=== PATIENT | male | born 1965 | race Caucasian/White ===

== ENCOUNTER 2019-02-09 18:59 | Emergency (ER) | payer OTHER, BC ==
[2019-02-09 19:44] VITALS: BP 146/91
[2019-02-09] MEDS ORDERED: IBUPROFEN 800 MG TABLET PO ONE (21:02)
--- NOTE | 2019-02-09 21:14 | ER Document Report ---
HPI - HPI Pain Level: 3 Notes: Patient is a 53-year-old male who presents emergency department complaining of right medial knee pain status post twist injury earlier this afternoon. Patient states that his foot got caught in the mud and he fell forward and his knee twisted. Patient states that he has had medial knee pain since then, but has been able to ambulate with a slight limp. Patient has not noticed any bruising or deformity/swelling. He is eating and drinking without difficulties. He is urinating normally and having normal bowel movements. No other concerns or complaints. Denies any headache, fever, head injury, neck pain, URI, sore throat, chest pain, palpitations, syncope, cough, shortness of breath, wheeze, dyspnea, abdominal pain, nausea/vomiting/diarrhea, urinary retention, dysuria, hematuria, loss of control of bowel or bladder, numbness/tingling, muscle paralysis/weakness, or rash. - ROS Systems Reviewed and Negative: Yes All other systems reviewed and negative - CONSTITUTIONAL Constitutional: DENIES: Fever, Chills - MUSCULOSKELETAL Musculoskeletal: REPORTS: Extremity pain - R knee Past Medical History - Social History Smoking Status: Never Smoker Family History: Reviewed & Not Pertinent Patient has suicidal ideation: No Patient has homicidal ideation: No Renal/ Medical History: Denies: Hx Peritoneal Dialysis Vertical Provider Document - CONSTITUTIONAL Agree With Documented VS: Yes Notes: PHYSICAL EXAMINATION: GENERAL: Well-appearing, well-nourished and in no acute distress. LUNGS: Breath sounds clear to auscultation bilaterally and equal. No wheezes rales or rhonchi. HEART: Regular rate and rhythm without murmurs, rubs, gallops. Musculoskeletal: Rt knee: No obvious swelling, ecchymosis, effusion, or deformity. FROM to passive/active and flexion >90 w/o difficulty. + medial tenderness noted. Strength 5+/5. N/V intact distal. Ligamentous grossly stable, limited exam with larger leg size. Barron grossly negative. Patellar grind negative. No calf tenderness. Extremities: No cyanosis, clubbing, or edema b/l. Peripheral pulses 2+. Capillary refill less than 3 seconds. Bryson neg b/l. NEUROLOGICAL: Normal speech, normal gait. Normal sensory, motor exams PSYCH: Normal mood, normal affect. SKIN: Warm, Dry, normal turgor, no rashes or lesions noted. - INFECTION CONTROL TRAVEL OUTSIDE OF THE [place] IN LAST 30 DAYS: No Course - Re-evaluation Re-evalutation: 02/09/19 Pt declines crutches/imobilizer/pain medicine. Patient is an afebrile, well-hydrated, 53-year-old male who presents to the ED with Rt medial knee pain which I suspect to be a sprain versus strain. Vitals are acceptable without any significant tachycardia, tachypnea, or hypoxia. PE is otherwise unremarkable for any neurovascular compromise, obvious tendon/ligament rupture, obvious fracture/dislocation, septic joint. X-ray was unremarkable for any acute pathology. Patient is nontoxic-appearing. Patient is able to ambulate and weight-bear although he is mildly limping. No other labs or imaging warranted at this time based on H&P. Conservative measures otherwise for symptoms. Recheck with your PCM in 3-5 days. Consider consult orthopedics. Return to the ED with any worsening/concerning symptoms otherwise as reviewed in discharge. Patient is in agreement. - Vital Signs Vital signs: Temp Pulse Resp BP Pulse Ox 98.5 F 81 17 146/91 H 96 02/09/19 19:42 02/09/19 19:42 02/09/19 19:42 02/09/19 19:42 02/09/19 19:42 Discharge - Discharge Clinical Impression: Right knee pain Qualifiers: Chronicity: acute Qualified Code(s): M25.561 - Pain in right knee Condition: Stable Disposition: HOME, SELF-CARE Additional Instructions: Rest, Ice, Compression, Elevation Tylenol/ibuprofen as needed Light stretches daily Strength exercises as able Moist heat and massage may help F/u with your PCP in 3-5 days for a recheck Consider consult(s) with Orthopedics/physical therapy for ongoing/worsening symptoms Return to the ED with any worsening symptoms and/or development of fever, headache, chest pain, palpitations, syncope, shortness of breath, trouble breathing, abdominal pain, n/v/d, muscle weakness/paralysis, numbness/tingling, swelling, redness, or other worsening symptoms that are concerning to you. Forms: Elevated Blood Pressure Referrals: [facility] ([place]) [Provider Group] - Follow up as needed
--- NOTE | 2019-02-09 21:20 | RADIOLOGY REPORT (SQ) ---
EXAM DESCRIPTION: XR KNEE 4 OR MORE VIEWS COMPLETED DATE/TME: 02/09/2019 20:07 CLINICAL HISTORY: 53 years, Male, pain and injury COMPARISON: None. NUMBER OF VIEWS: Four TECHNIQUE: Four views of the RIGHT knee were obtained in AP, bilateral oblique and lateral projection. LIMITATIONS: None. FINDINGS: No fracture or dislocation. The soft tissues are within normal limits. The joint spaces are preserved. Incidentally noted superolateral lucency with sclerosis traversing the patella, a finding which can be seen as a congenital variant. 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 IMPRESSION: No acute radiographic abnormality. copyright 2010 [employer]- All Rights Reserved
== END 2019-02-09 21:40 | disposition home or self-care (01) ==
LOC: EDBD → ER 18:59
DX: M25.561 Pain in right knee (principal); W19.XXXA Unspecified fall, initial encounter
CPT/HCPCS: 99283